=== PATIENT | female | born 1990 ===

== ENCOUNTER 2018-02-07 12:38 | Emergency (ER) | payer OTHER ==
[2018-02-07 14:24] LABS: Absolute Lymphocytes (CBC) 1.5 K/uL (0.7-4.9); Absolute Monocytes 0.6 K/uL (0.1-1.3); Absolute Neutrophil 7.9 K/uL (1.8-8.0); Basophils % 0.4 % (0-1.3); Eosinophils % 0.3 % (0-4.4); Hematocrit 37.4 % (36.0-45.0); Lymphocytes % 15.2 % (15.3-44.8); MCH 30.9 pg (27.0-35.0); MCV 90.2 fL (80-100); MPV 9.9 fL (7.6-11.3); Monocytes % 5.6 % (3.3-12.3); RBC Red Blood Cell Count 4.15 M/uL (3.86-4.86)
[2018-02-07 14:34] LABS: ALT/SGPT 25 U/L (12-78); AST/SGOT 9 U/L (15-37); Albumin 4.2 g/dL (3.4-5.0); Alkaline Phosphatase 39 U/L (45-117); BUN Blood Urea Nitrogen 6 mg/dL (7-18); Bicarbonate 23 mmol/L (21-32); Bilirubin Direct 0.1 mg/dL (0-0.2); Bilirubin Total 0.4 mg/dL (0.2-1.0); Glucose Level 83 mg/dL (74-106); Lipase 97 U/L (73-393); Potassium 3.7 mmol/L (3.5-5.1); Protein, Total 8.6 g/dL (6.4-8.2); Sodium Level 134 mmol/L (136-145)
[2018-02-07] MEDS ORDERED: METOCLOPRAMIDE 10 MG/2mL INJ ONE (14:37)
[2018-02-07] MEDS ORDERED: NA CHLORIDE 0.9% 1,000 ML ONE (14:37)
--- NOTE | 2018-02-07 16:23 | EDPHYS ---
Physician Documentation [facility] Name: Salomon Crawford Age: 27 yrs Sex: Female : 1990 Arrival Date: 02/07/2018 Time: 12:40 Bed 7 Private MD: Unknown, Unknown ED Physician Meng Knight HPI: 02/07 14:54 This 27 yrs old Unknown Female presents to ER via Ambulatory with complaints of jr8 Vomiting, UNKNOWN WEEKS . 14:54 The patient presents to the emergency department with nausea, vomiting. Onset: The jr8 symptoms/episode began/occurred acutely, 2 day(s) ago. Possible causes: . The symptoms are aggravated by nothing. The symptoms are alleviated by nothing. Associated signs and symptoms: The patient has no apparent associated signs or symptoms. Severity of symptoms: At their worst the symptoms were mild in the emergency department the symptoms are unchanged. The patient has not experienced similar symptoms in the past. The patient has not recently seen a physician. CAT[place]ING [place]: 13:00 3 ca1 Historical: - Allergies: 12:46 No Known Allergies; ss - Home Meds: 12:46 None [Active]; ss - PMHx: 12:46 None; ss - PSHx: 12:46 None; ss - Immunization history:: Adult Immunizations up to date. - Social history:: Smoking status: Patient/guardian denies using tobacco. - Ebola Screening: : Patient denies exposure to infectious person Patient denies travel to an Ebola-affected area in the 21 days before illness onset. ROS: 14:54 Eyes: Negative for injury, pain, redness, and discharge, ENT: Negative for injury, jr8 pain, and discharge, Neck: Negative for injury, pain, and swelling, Cardiovascular: Negative for chest pain, palpitations, and edema, Respiratory: Negative for shortness of breath, cough, wheezing, and pleuritic chest pain, Back: Negative for injury and pain, MS/Extremity: Negative for injury and deformity, Skin: Negative for injury, rash, and discoloration, Neuro: Negative for headache, weakness, numbness, tingling, and seizure. 14:54 Abdomen/GI: Positive for nausea and vomiting, Negative for abdominal pain, diarrhea, constipation, abdominal cramps, abdominal distension, anorexia, dysphagia, hematemesis, black/tarry stool, rectal pain, rectal bleeding, bowel incontinence, flatulence. Exam: 14:54 Eyes: Pupils equal round and reactive to light, extra-ocular motions intact. Lids and jr8 lashes normal. Conjunctiva and sclera are non-icteric and not injected. Cornea within normal limits. Periorbital areas with no swelling, redness, or edema. ENT: Nares patent. No nasal discharge, no septal abnormalities noted. Tympanic membranes are normal and external auditory canals are clear. Oropharynx with no redness, swelling, or masses, exudates, or evidence of obstruction, uvula midline. Mucous membranes moist. Neck: Trachea midline, no thyromegaly or masses palpated, and no cervical lymphadenopathy. Supple, full range of motion without nuchal rigidity, or vertebral point tenderness. No Meningismus. Cardiovascular: Regular rate and rhythm with a normal S1 and S2. No gallops, murmurs, or rubs. Normal PMI, no JVD. No pulse deficits. Respiratory: Lungs have equal breath sounds bilaterally, clear to auscultation and percussion. No rales, rhonchi or wheezes noted. No increased work of breathing, no retractions or nasal flaring. Abdomen/GI: Soft, non-tender, with normal bowel sounds. No distension or tympany. No guarding or rebound. No evidence of tenderness throughout. Back: No spinal tenderness. No costovertebral tenderness. Full range of motion. Skin: Warm, dry with normal turgor. Normal color with no rashes, no lesions, and no evidence of cellulitis. MS/ Extremity: Pulses equal, no cyanosis. Neurovascular intact. Full, normal range of motion. Neuro: Awake and alert, GCS 15, oriented to person, place, time, and situation. Cranial nerves II-XII grossly intact. Motor strength 5/5 in all extremities. Sensory grossly intact. Cerebellar exam normal. Normal gait. Vital Signs: 12:46 BP 113 / 64; Pulse 95; Resp 16; Temp 98.3(TE); Pulse Ox 100% on R/A; Weight 49.9 kg; ss Height 5 ft. 3 in. (160.02 cm); Pain 0/10; 15:10 BP 91 / 72; Pulse 70; Resp 18; Pulse Ox 98% on R/A; Pain 0/10; ca1 15:40 BP 120 / 67; Pulse 68; Resp 16; Pulse Ox 99% on R/A; ca1 16:20 BP 120 / 64; Pulse 66; Resp 16; Pulse Ox 98% on R/A; ca1 12:46 Body Mass Index 19.49 (49.90 kg, 160.02 cm) ss MDM: 13:31 Patient medically screened. jr8 16:21 Data reviewed: vital signs, nurses notes, lab test result(s), and as a result, I will jr8 discharge patient. Data interpreted: Pulse oximetry: on room air is 99 %. Interpretation: normal. Counseling: I had a detailed discussion with the patient and/or guardian regarding: the historical points, exam findings, and any diagnostic results supporting the discharge/admit diagnosis, lab results, the need for outpatient follow up, an OB/Gyne specialist, to return to the emergency department if symptoms worsen or persist or if there are any questions or concerns that arise at home. Response to treatment: the patient's symptoms have markedly improved after treatment, patient is well hydrated. 02/07 13:31 Order name: Basic Metabolic Panel; Complete Time: 14:36 8 02/07 13:31 Order name: CBC with Diff; Complete Time: 14:36 8 02/07 13:31 Order name: Creatinine for Radiology; Complete Time: 14:36 8 02/07 13:31 Order name: Hepatic Function; Complete Time: 14:36 8 02/07 13:31 Order name: Lipase; Complete Time: 14:36 8 02/07 15:06 Order name: Urine Dipstick--Ancillary (enter results) 02/07 13:31 Order name: IV Saline Lock; Complete Time: 14:59 8 02/07 13:31 Order name: Labs collected and sent; Complete Time: 14:59 [facility] 02/07 13:31 Order name: Urine Dipstick-Ancillary (obtain specimen); Complete Time: 14:58 jr8 Administered Medications: 14:32 Drug: Reglan 10 mg Route: IVP; Site: left antecubital; ca1 15:48 Follow up: Response: No adverse reaction ca1 14:35 Drug: NS 0.9% 1000 ml Route: IV; Rate: 1000 ml; Site: left antecubital; ca1 16:30 Follow up: IV Status: Completed infusion ca1 Disposition: 18:07 Co-signature as Attending Physician, Meng Knight MD I agree with the assessment and [facility] plan of care. Disposition: 02/07/18 16:22 Discharged to Home. Impression: Vomiting of , unspecified. - Condition is Stable. - Discharge Instructions: Morning Sickness, [id number]. - Prescriptions for promethazine 25 mg Oral Tablet - take 1 tablet by ORAL route every 6 hours As needed; 20 tablet. - Work release form, Medication Reconciliation Form, Thank You Letter, Antibiotic Education, Prescription Opioid Use form. - Follow up: Private Physician; When: 5 - 6 days; Reason: Recheck today's complaints, Continuance of care, Re-evaluation by your physician. - Problem is new. - Symptoms have improved. Signatures: Dispatcher [employer] EDMS Meng Knight MD MD cha Smirch, Shelby, RN RN Kris Chery PA PA jr8 AcLakeisha styles RN RN ca1 Corrections: (The following items were deleted from the chart) 15:01 13:31 Urine Test ordered. jr8 ca1 16:37 16:22 02/07/2018 16:22 Discharged to Home. Impression: Vomiting of , ca1 unspecified. Condition is Stable. Forms are Medication Reconciliation Form, Thank You Letter, Antibiotic Education, Prescription Opioid Use. Follow up: Private Physician; When: 5 - 6 days; Reason: Recheck today's complaints, Continuance of care, Re-evaluation by your physician. Problem is new. Symptoms have improved. jr8
--- NOTE | 2018-02-07 16:23 | ER ---
Nurse's Notes [facility] Name: Salomon Crawford Age: 27 yrs Sex: Female : 1990 Arrival Date: 02/07/2018 Time: 12:40 Bed 7 Private MD: Unknown, Unknown Diagnosis: Vomiting of , unspecified Presentation: 02/07 12:45 Presenting complaint: Patient states: N/V x 2-3 days. Pt reports she is , but ss is not sure how far along as she has an appointment coming up this week. Transition of care: patient was not received from another setting of care. Onset of symptoms was February 05, 2018. Risk Assessment: Do you want to hurt yourself or someone else? Patient reports no desire to harm self or others. Initial Sepsis Screen: Does the patient meet any 2 criteria? HR > 90 bpm. Does the patient have a suspected source of infection? No. Patient's initial sepsis screen is negative. Care prior to arrival: None. 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 - Social history:: Smoking status: Patient/guardian denies using tobacco. - Ebola Screening: : Patient denies exposure to infectious person Patient denies travel to an Ebola-affected area in the 21 days before illness onset. Screenin:00 Abuse screen: Denies threats or abuse. Nutritional screening: No deficits noted. ca1 Tuberculosis screening: No symptoms or risk factors identified. Fall Risk IV access (20 points). Assessment: 12:50 General: Appears in no apparent distress. Behavior is calm, cooperative. Pain: Denies ca1 pain. Neuro: No deficits noted. Cardiovascular: Heart tones S1 S2 present. Respiratory: Breath sounds are clear bilaterally. GI: Reports nausea, vomiting, since 3 days ago. 12:50 : No signs and/or symptoms were reported regarding the genitourinary system. EENT: No ca1 signs and/or symptoms were reported regarding the EENT system. 12:50 GI: Abdomen is flat, Bowel sounds present X 4 quads. Abd is soft and non tender X 4 ca1 quads. 15:16 Reassessment: Patient is alert, oriented x 3, equal unlabored respirations, skin ca1 warm/dry/pink. Patient denies pain at this time. Patient states, "She can't tell if the medication has made her feel better yet". . 16:20 Reassessment: Patient is alert, oriented x 3, equal unlabored respirations, skin ca1 warm/dry/pink. Patient states feeling better. Patient states symptoms have improved. Vital Signs: 12:46 BP 113 / 64; Pulse 95; Resp 16; Temp 98.3(TE); Pulse Ox 100% on R/A; Weight 49.9 kg; ss Height 5 ft. 3 in. (160.02 cm); Pain 0/10; 15:10 BP 91 / 72; Pulse 70; Resp 18; Pulse Ox 98% on R/A; Pain 0/10; ca1 15:40 BP 120 / 67; Pulse 68; Resp 16; Pulse Ox 99% on R/A; ca1 16:20 BP 120 / 64; Pulse 66; Resp 16; Pulse Ox 98% on R/A; ca1 12:46 Body Mass Index 19.49 (49.90 kg, 160.02 cm) ED Course: 12:40 Patient arrived in ED. ag5 12:42 Unknown, Unknown is Private Physician. ag5 12:46 Triage completed. ss 12:46 Arm band placed on right wrist. ss 12:50 Placed in gown. Bed in low position. Call light in reach. Side rails up X 1. Door ca1 closed. Warm blanket given. Head of bed elevated. 13:31 Kris Carter PA is PHCP. jr8 13:31 Meng Knight MD is Attending Physician. jr8 14:17 Initial lab(s) drawn, by me, sent to lab. Inserted saline lock: 20 gauge in left jl7 antecubital area, using aseptic technique. Blood collected. 14:26 Lakeisha Hall, RN is Primary Nurse. ca1 16:20 No provider procedures requiring assistance completed. ca1 16:36 intact, bleeding controlled, No redness/swelling at site. Pressure dressing applied. ca1 Administered Medications: 14:32 Drug: Reglan 10 mg Route: IVP; Site: left antecubital; ca1 15:48 Follow up: Response: No adverse reaction ca1 14:35 Drug: NS 0.9% 1000 ml Route: IV; Rate: 1000 ml; Site: left antecubital; ca1 16:30 Follow up: IV Status: Completed infusion ca1 Outcome: 16:22 Discharge ordered by MD. torres 16:36 Discharged to home ambulatory. ca1 16:36 Condition: stable 16:36 Instructed on discharge instructions, follow up and referral plans. medication usage. 16:37 Patient left the ED. ca1 Signatures: Chelsea Jones, RN RN ss Kris Carter PA PA jr8 Yeyo Orantes RN RN jl7 Lakeisha Hall, RN RN ca1 Lois Rivera ag5 Corrections: (The following items were deleted from the chart) 15:10 15:01 General: Appears in no apparent distress. Behavior is calm, cooperative, ca1 ca1 15: 15:01 Pain: Denies pain. ca1 ca1 15: 15:01 Neuro: No deficits noted. ca1 ca1 15: 15:01 Cardiovascular: Heart tones S1 S2 present ca1 ca1 15:10 15:01 Respiratory: Breath sounds are clear bilaterally. ca1 ca1 15:10 15:01 GI: Reports nausea, vomiting, since 3 days ago. ca1 ca1
[2018-02-07 22:10] LABS: Urine Blood NEGATIVE (NEG); Urine Glucose NEGATIVE (NEG); Urine Protein NEGATIVE (NEG); Urine Specific Gravity <1.005 (1.005-1.030)
== END 2018-02-07 16:37 | disposition home or self-care (01) ==
LOC: ER 12:38
DX: O21.9 Vomiting of pregnancy, unspecified (principal); Z3A.00 Weeks of gestation of pregnancy not specified
CPT/HCPCS: 36415; 80048; 80076; 81003; 83690; 85025; 96361; 96374; 99284; J2765; J7030